=== PATIENT | female | born 1955 | race African-American/Black ===

== ENCOUNTER 2018-02-21 08:17 | Outpatient (CLI) | payer MEDICARE, MEDICAID | END 2018-02-21 08:18 | disposition home or self-care (01) | LOC: BICULT 08:17 | PROVIDERS: ATTEND Family Medicine | DX: R10.11 Right upper quadrant pain (principal); R74.8 Abnormal levels of other serum enzymes | CPT/HCPCS: 76705 ==

== ENCOUNTER 2018-05-09 10:32 | Outpatient (CLI) | payer MEDICARE, MEDICAID | END 2018-05-09 10:33 | disposition home or self-care (01) | LOC: BICMAMMO 10:32 | PROVIDERS: ATTEND Internal Medicine Infectious Disease | DX: Z12.31 Encounter for screening mammogram for malignant neoplasm of breast (principal); Z80.3 Family history of malignant neoplasm of breast | CPT/HCPCS: 77063; 77067 ==

== ENCOUNTER 2018-05-09 15:10 | Inpatient (IN) | payer MEDICARE, OTHER ==
[2018-05-09] MEDS ORDERED: Furosemide 20 MG/2 ML VIAL SLOW IVP SCH (16:00)
[2018-05-09 16:17] VITALS: BMI 32.4
[2018-05-09 16:27] LABS: #Basophils 0.1 thou/uL (0.0-0.2); #Eosinphils 0.2 thou/uL (0.0-0.7); #Lymphocytes 2.9 thou/uL (1.20-3.40); #Monocytes 0.5 thou/uL (0.11-0.59); #Neutrophils 3.1 thou/uL (1.40-6.50); %Eosinophils 2.5 % (0.0-10.0); %Lymphocytes 43.4 % (21.0-51.0); %Monocytes 7.3 % (0.0-10.0); %Neutrophils 45.8 % (42.0-75.0); Hemoglobin 14.1 g/dL (12.0-16.0); Mean Corpuscular HGB CONC 31.9 g/dL (32.0-36.0); Mean Corpuscular Hemoglobin 29.9 pg (27.0-31.0); Mean Corpuscular Volume 93.6 fL (78.0-98.0); Mean Platelet Volume 8.5 fL (7.4-10.4); Platelet Count 186 thou/uL (130-400); RBC Distribution Width 13.5 % (11.5-14.5); Red Blood Cell (RBC) Count 4.73 mill/uL (4.20-5.40); White Blood Cell (WBC) Count 6.8 thou/uL (4.8-10.8)
[2018-05-09 16:48] LABS: ALT (SGPT) 45 U/L (8-55); AST (SGOT) 23 U/L (5-34); Albumin 4.1 g/dL (3.5-5.0); Alkaline Phosphatase 141 U/L (40-150); Anion Gap 12 mmol/L (10-20); BUN (Urea Nitrogen) 11 mg/dL (9.8-20.1); Bilirubin, Total 0.2 mg/dL (0.2-1.2); Calc. Creatinine Clearance 82 mL/min (70-130); Calcium 9.9 mg/dL (7.8-10.44); Carbon Dioxide 23 mmol/L (22-29); Chloride 109 mmol/L (98-107); Estimated GFR-MDRD 60; Globulin 3.2 g/dL (2.4-3.5); Glucose 77 mg/dL (70-105); Magnesium 2.3 mg/dL (1.6-2.6); Phosphorus 3.3 mg/dL (2.3-4.7); Potassium 4.4 mmol/L (3.5-5.1); Protein, Total 7.3 g/dL (6.0-8.3); Sodium 140 mmol/L (136-145)
--- NOTE | 2018-05-09 17:09 | PDOC.FPRHP ---
- History of Present Illness Chief Complaint: SOB History of Present Illness: Ms. Pichardo presents from clinic as a direct admit for SOB She reports for the last 7 months she has really been noticing increasing SOB with activity, weight gain, and swelling in her lower extremities. She attributes to weight gain to her smoking cessation 7 months ago. She reports a history of intermittent shortness of breath and some chest pain. She denies any palpitation, muscle weakness, syncope, or changes in vision. ED Course: direct admit - Allergies/Adverse Reactions Allergies Allergy/AdvReac Type Severity Reaction Status Date / Time No Known Allergies Allergy Unverified 02/14/13 21:11 - Home Medications Medication Instructions Recorded Confirmed Type Aspirin [Ecotrin] 81 mg PO DAILY 05/09/18 05/09/18 History Atorvastatin Calcium [Lipitor] 40 mg PO HS 05/09/18 05/09/18 History Elviteg/Cob/Emtri/Tenof Alafen 1 tab PO DAILY 05/09/18 05/09/18 History [Genvoya Tablet] Linaclotide [Linzess] 290 mcg PO DAILY-AC 05/09/18 05/09/18 History Pregabalin [Lyrica] 150 mg PO BID 05/09/18 05/09/18 History Zolpidem Tartrate 10 mg PO HS PRN 05/09/18 05/09/18 History buPROPion HCl [buPROPion HCl ER] 150 mg PO BID 05/09/18 05/09/18 History - History PMHx: chronic HIV+, HLD, depression PSHx: hysterectomy FHx: NC Social: 40 pack year smoking history, no alcohol, occasional marijuana use - Review of Systems General: reports: weight/appetite/sleep changes, fatigue. denies: fever/chills Eyes: denies: vision changes Respiratory: reports: shortness of breath, exercise intolerance. denies: cough , congestion Cardiovascular: reports: edema. denies: chest pain, palpitation, paroxysmal nocturnal dyspnea, orthopnea Gastrointestinal: reports: constipation. denies: nausea, vomiting, diarrhea Genitourinary: denies: incontinence, dysuria Skin: denies: rashes Musculoskeletal: denies: pain Neurological: denies: numbness, syncope, weakness Psychological: reports: depression - Vital signs BP: 142/95 HR: 71 RR: 19 Tmax: 98.5 Pox: 97% on RA Wt: 96kg - Physical Exam Constitutional: NAD, awake, alert and oriented HEENT: normocephalic and atraumatic, grossly normal vision, grossly normal hearing Neck: FROM, trachea midline Chest: no-tender to palpation, no lesions Heart: RRR, normal S1/S2, no murmurs/rubs/gallops, pulses present, other (1+ edema to knees) Lungs: CTAB, no respiratory distress, good air movement, no wheezing, other ( mild crackles in lower lung epstein) Abdomen: soft, non-tender Musculoskeletal: normal structure, normal tone, ROM grossly normal Neurological: no focal deficit Skin: no rash/lesions Heme/Lymphatic: no unusual bruising or bleeding Psychiatric: normal mood and affect FMR H&P: Results - Labs Result Diagrams: 05/09/18 16:18 05/09/18 16:18 Lab results: WBC 6.8 thou/uL (4.8-10.8) 05/09/18 16:18 Hgb 14.1 g/dL (12.0-16.0) 05/09/18 16:18 Hct 44.3 % (36.0-47.0) 05/09/18 16:18 MCV 93.6 fL (78.0-98.0) 05/09/18 16:18 Plt Count 186 thou/uL (130-400) 05/09/18 16:18 Neutrophils % 45.8 % (42.0-75.0) 05/09/18 16:18 Sodium 140 mmol/L (136-145) 05/09/18 16:18 Potassium 4.4 mmol/L (3.5-5.1) 05/09/18 16:18 Chloride 109 mmol/L (98-107) H 05/09/18 16:18 Carbon Dioxide 23 mmol/L (22-29) 05/09/18 16:18 BUN 11 mg/dL (9.8-20.1) 05/09/18 16:18 Creatinine 1.12 mg/dL (0.6-1.1) H 05/09/18 16:18 Glucose 77 mg/dL (70-105) 05/09/18 16:18 Calcium 9.9 mg/dL (7.8-10.44) 05/09/18 16:18 Total Bilirubin 0.2 mg/dL (0.2-1.2) 05/09/18 16:18 AST 23 U/L (5-34) 05/09/18 16:18 ALT 45 U/L (8-55) 05/09/18 16:18 Alkaline Phosphatase 141 U/L (40-150) 05/09/18 16:18 B-Natriuretic Peptide 10.4 pg/mL (0-100) 05/09/18 16:18 Serum Total Protein 7.3 g/dL (6.0-8.3) 05/09/18 16:18 Albumin 4.1 g/dL (3.5-5.0) 05/09/18 16:18 FMR H&P: A/P - Problem List (1) Shortness of breath Current Visit: Yes Status: Acute Code(s): R06.02 - SHORTNESS OF BREATH (2) HIV (human immunodeficiency virus infection) Current Visit: Yes Status: Acute (3) HLD (hyperlipidemia) Current Visit: Yes Status: Acute Code(s): E78.5 - HYPERLIPIDEMIA, UNSPECIFIED (4) Constipation Current Visit: Yes Status: Acute Code(s): K59.00 - CONSTIPATION, UNSPECIFIED (5) Depression Current Visit: Yes Status: Acute Code(s): F32.9 - MAJOR DEPRESSIVE DISORDER , SINGLE EPISODE, UNSPECIFIED (6) Tobacco abuse, in remission Current Visit: Yes Status: Acute Code(s): F17.201 - NICOTINE DEPENDENCE, UNSPECIFIED, IN REMISSION - Plan Shortness of breath and lower extremity edema - concerning for new onset CHF, admit to tele, monitor strict IandOs and daily weights - tropsx3, TTE, CXR pending - BNP 10.4 - lasix 20mg IV BID, ASA 81 HIV - followed by Dr. Wu, taking medication as prescribed - continue home meds - consider obtaining CD4 HLD - atorvastatin 40, continue - contributing to overall risk for cardiovascular disease Constipation - continue home medications, monitor Depression - continue home medications Tobacco abuse in remission - continue to encourage smoking cessation - contributing to overall risk for cardiovascular disease ppx: lovenox code: full Disposition/LOS: evaluate further testing ordered for CHF, plan as needed, diurese and monitor FMR H&P: Upper Level - Pertinent history 62 y/o F w/ PMHx of HIV, HLD, and hx of tobacco abuse presents as a direct admit form clinic after being evaluated for increased SOB w/ exertion, orthopnea , and LE swelling concerning for new onset CHF. Also endorsing intermittent sharp sub-sternal chest pain. Denies any active chest pain at this time. No hx of cardiac issues. - Pertinent findings Vitals reviewed as outlined above in events intern note Labs and imaging pending at time of this note GEN: NAD, resting in bed comfortably HEENT: Normocephalic, atraumatic CARDS: RRR, no mumur PULM: CTA-b/l, no wheezes, rales, or murmurs EXT: 1+ LE edema b/l to mid collins - Plan Date/Time: 05/09/18 1705 I[place]. Doyle Garcia MD have evaluated this patient and agree with findings/plan as outlined by events intern resident. Pertinent changes/additions are listed here. 62 y/o F w/: 1) Likely New Onset CHF - Labs and imaging pending at time of this note including BNP, ECHO, CXR, and CE s - Fluid restrict and will monitor strict I/Os with daily weights - Cont. w/ statin and start aspirin - IV Lasix 20 mg BID, will adjust pending observed fluid response - Cardiology consult for further evaluation and recs 2) Other Chronic Problems - Reviewed, discussed with, and agree with events intern note as outlined above Code status: Full Code Ppx: Lovenox Assessment and Plan discussed w/ Dr. Chance who is in agreement. Attending Addendum - Attending Addendum Date/Time: 05/09/18 464 I personally evaluated the patient and discussed the management with Dr. Wray. I agree with and repeated the History, Examination, Assessment and Plan documented above with any addition or exceptions noted below. Scant bilateral basilar crackles, no wheezes, no inc wob. RRR s m. CP/SOB -likely new onset CHF -TTE, stress to follow -diuresis HIV -continue genvoya OUMAR vs CKD -vs possible SE of cobicistat -monitor HTN/HLP -continue home meds DVT/GI ppx
--- NOTE | 2018-05-09 17:17 | RAD ---
CHEST ONE VIEW: 05/09/18 HISTORY: New onset CHF. COMPARISON: Radiograph 02/14/13. FINDINGS: The lungs are mildly hyperinflated. Mild pulmonary venous congestion. No pneumothorax. No effusion. No acute osseous abnormality. IMPRESSION: Mild lung hyperinflation and low grade pulmonary venous congestion. POS: [facility]
[2018-05-09 19:06] LABS: CKMB 2.6 ng/mL (0-6.6); Troponin I Less than 0.010 ng/mL (< 0.028)
[2018-05-09 21:33] LABS: CKMB 2.5 ng/mL (0-6.6); Troponin I Less than 0.010 ng/mL (< 0.028)
[2018-05-10] MEDS: Zolpidem Tartrate 5 MG TAB PO PRN ×2 (00:24→23:14)
[2018-05-10 00:54] LABS: Anion Gap 12 mmol/L (10-20); BUN (Urea Nitrogen) 15 mg/dL (9.8-20.1); CKMB 2.1 ng/mL (0-6.6); Calc. Creatinine Clearance 78 mL/min (70-130); Calcium 10.3 mg/dL (7.8-10.44); Carbon Dioxide 26 mmol/L (22-29); Chloride 108 mmol/L (98-107); Estimated GFR-MDRD 57; Glucose 93 mg/dL (70-105); Sodium 142 mmol/L (136-145); Troponin I Less than 0.010 ng/mL (< 0.028)
--- NOTE | 2018-05-10 06:03 | PDOC.FM ---
- Subjective Subjective: Jesus Pichardo seen at bedside this morning. She is doing well, has no complaints. She denies any active chest pain, dyspnea, or palpitations. She had negative trops X3 overnight. She is scheduled for Echo this morning, as well as stress test today. - Objective MAR Reviewed: Yes Vital Signs & Weight: Vital Signs (12 hours) Temp Pulse Resp BP BP Pulse Ox 05/10/18 03:10 98.1 F 79 17 98/67 95 05/10/18 00:00 98.3 F 76 16 123/78 94 L 05/09/18 19:22 95 Weight Weight 96.887 kg I&O: 05/08/18 05/09/18 05/10/18 06:59 06:59 06:59 Output Total 900 Balance -900 Result Diagrams: 05/09/18 16:18 05/10/18 00:25 <Yrn Figueroa - Last Filed: 05/10/18 07:06> - Objective Vital Signs & Weight: Vital Signs (12 hours) Temp Pulse Resp BP BP Pulse Ox 05/10/18 08:00 97.9 F 73 16 94 L 05/10/18 03:10 98.1 F 79 17 98/67 95 05/10/18 00:00 98.3 F 76 16 123/78 94 L Weight Weight 95.98 kg I&O: 05/09/18 05/10/18 05/11/18 06:59 06:59 06:59 Intake Total 360 Output Total 2050 Balance -1690 Result Diagrams: 05/09/18 16:18 05/10/18 00:25 <Abhilash Chance - Last Filed: 05/10/18 11:08> Phys Exam - Physical Examination Constitutional: NAD HEENT: moist MMs, sclera anicteric Neck: supple, full ROM Respiratory: no wheezing, no rales, no rhonchi, clear to auscultation bilateral Cardiovascular: RRR, no significant murmur Gastrointestinal: soft, non-tender, no distention Musculoskeletal: no edema, pulses present Neurological: non-focal, moves all 4 limbs Psychiatric: normal affect, A&O x 3 <Yrn Figueroa - Last Filed: 05/10/18 07:06> Dx/Plan (1) Shortness of breath Code(s): R06.02 - SHORTNESS OF BREATH Status: Acute (2) HLD (hyperlipidemia) Code(s): E78.5 - HYPERLIPIDEMIA, UNSPECIFIED Status: Chronic (3) Depression Code(s): F32.9 - MAJOR DEPRESSIVE DISORDER, SINGLE EPISODE, UNSPECIFIED Status : Chronic (4) Tobacco abuse, in remission Code(s): F17.201 - NICOTINE DEPENDENCE, UNSPECIFIED, IN REMISSION Status: Chronic (5) Constipation Code(s): K59.00 - CONSTIPATION, UNSPECIFIED Status: Acute (6) HIV (human immunodeficiency virus infection) Status: Chronic - Plan Plan: (1) Shortness of breath and lower extremity edema - concerning for new onset mild CHF - monitor strict IandOs and daily weights - trops were negative x3, TTE pending, CXR showed mild lung hyperinflation, low grade pulm vasc congestion - BNP 10.4 - lasix 20mg give - Continue aspirin and statin - Stress today (2) HIV - followed by Dr. Wu, taking medication as prescribed - continue home meds - consider obtaining CD4 (3) HLD - atorvastatin 40, continue - contributing to overall risk for cardiovascular disease (4) Constipation - continue home medications, monitor (5) Depression - continue home medications (6) Tobacco abuse in remission - continue to encourage smoking cessation - contributing to overall risk for cardiovascular disease ppx: lovenox code: full <Yrn Figueroa - Last Filed: 05/10/18 07:06> (1) Shortness of breath Code(s): R06.02 - SHORTNESS OF BREATH Status: Acute (2) HIV (human immunodeficiency virus infection) Status: Chronic (3) HLD (hyperlipidemia) Code(s): E78.5 - HYPERLIPIDEMIA, UNSPECIFIED Status: Chronic (4) Constipation Code(s): K59.00 - CONSTIPATION, UNSPECIFIED Status: Acute (5) Depression Code(s): F32.9 - MAJOR DEPRESSIVE DISORDER, SINGLE EPISODE, UNSPECIFIED Status : Chronic (6) Tobacco abuse, in remission Code(s): F17.201 - NICOTINE DEPENDENCE, UNSPECIFIED, IN REMISSION Status: Chronic <Abhilash Chance - Last Filed: 05/10/18 11:08> Attending Addendum - Attending Addendum Date/Time: 05/10/18 1108 I personally evaluated the patient and discussed the management with Dr. Figueroa. I agree with and repeated the History, Examination, Assessment and Plan documented above with any addition or exceptions noted below. Await stress and TTE and disposition pending. <Abhilash Chance - Last Filed: 05/10/18 11:08>
[2018-05-10] MEDS: Pregabalin 75 MG CAP PO SCH ×2 (09:11→23:11)
[2018-05-10] MEDS: Enoxaparin Sodium 40 MG/0.4 ML SYRINGE SC SCH (09:13)
[2018-05-10] MEDS: Bupropion 150 MG SR TAB PO SCH ×2 (09:13→21:31)
[2018-05-10] MEDS: (Elviteg/Cob/Emtri/Tenof Alafen [Genvoya Tablet] 1 TAB) PO SCH (09:15)
[2018-05-10] MEDS ORDERED: ADENOSINE 60 MG/20 ML VIAL ONE (10:25)
--- NOTE | 2018-05-10 14:29 | NM ---
SINGLE DAY NUCLEAR MEDICINE CARDIAC STRESS TEST WITH EJECTION FRACTION: HISTORY: New onset heart failure. COMPARISON: None. TECHNIQUE/FINDINGS: A single day stress test was performed after the intravenous administration of 29 mCi technetium-99m sestamibi. There is adequate left ventricular uptake of radiotracer. Normal wall motion. No evidence of scar or ischemia. Ejection fraction is 65%. IMPRESSION: Normal nuclear medicine cardiac stress test and ejection fraction. POS: [facility]
[2018-05-10] MEDS ORDERED: Atorvastatin Calcium 40 MG TAB PO SCH (21:00)
--- NOTE | 2018-05-10 21:34 | CON ---
DATE OF CONSULTATION: 05/10/2018 REASON FOR CONSULTATION: HIV infection with edema and dyspnea. HISTORY OF PRESENT ILLNESS: A 62-year-old, who was a known patient to me for many years, who has a stable HIV infection with adequate adherence to antiretroviral therapy and suppressed viral load, the latest CD4 cell count is above 500. The patient developed edema and some respiratory symptoms and was admitted. Cardiology evaluation was not unremarkable including a stress nuclear test and an echocardiogram. The patient is currently feeling well. Denies any headaches, visual symptoms, sore throat, odynophagia, or dysphagia. No chest pain, no abdominal pain, no diarrhea, no genitourinary symptoms. Mild edema in lower extremities. PAST MEDICAL HISTORY: Includes longstanding HIV infection with adequate adherence to antiretroviral therapy, suppression of viral load, previous episodes of SBO with normal colonoscopy and normal small bowel follow through in 2006, hysterectomy, menorrhagia, tubal ligation. ALLERGIES: None. MEDICATIONS: Atripla. Actually, she is now on Genvoya for her HIV infection. FAMILY HISTORY: Breast cancer, diabetes. SOCIAL HISTORY: The patient has a former history of smoking. PHYSICAL EXAMINATION: VITAL SIGNS: Normal, O2 sats 94% on room air. GENERAL: She is in no distress. SKIN: No skin lesions. LYMPHATIC: No lymphadenopathy. HEENT: Noncontributory. NECK: Supple. No jugular vein distention. LUNGS: Clear to auscultation and percussion. No wheezing. HEART: S1, S2, regular rate. No S3, S4. ABDOMEN: Soft, not distended or tender. No ascites. No bladder distention. EXTREMITIES: No joint inflammatory activity. Trace edema in lower extremities. Pulses 1+ in dorsalis pedis. Moves all extremities equally. NEUROLOGIC: Cognitive function appears to be stable. DIAGNOSTIC DATA: Labs are fairly unremarkable except for mild elevation of creatinine. Troponin normal. The workup includes normal stress test, nuclear medicine, and echocardiogram, EF of 55-60%. Chest x-ray with mild lung hyperinflation. ASSESSMENT: 1. Longstanding human immunodeficiency virus infection with excellent adherence to ensure hold antiretroviral therapy with adequate suppression of viral load and normal CD4 cell count. 2. Some edema and some respiratory symptoms. 3. Negative cardiac evaluation. DISCUSSION: It is possible that her dyspnea is related to lung findings. She does have a history of smoking. They have some early emphysema, chronic obstructive lung disease. She should continue taking her antiretroviral therapy as previously. She has had a negative stress test and will follow up with me in the clinic as scheduled. ADRI
[2018-05-11 05:42] LABS: Anion Gap 10 mmol/L (10-20); BUN (Urea Nitrogen) 16 mg/dL (9.8-20.1); Calc. Creatinine Clearance 69 mL/min (70-130); Calcium 10.2 mg/dL (7.8-10.44); Carbon Dioxide 26 mmol/L (22-29); Chloride 107 mmol/L (98-107); Estimated GFR-MDRD 50; Glucose 102 mg/dL (70-105); Potassium 4.2 mmol/L (3.5-5.1); Sodium 139 mmol/L (136-145)
--- NOTE | 2018-05-11 05:44 | PDOC.FM ---
- Subjective Subjective: Jesus Beaulieu seen at bedside this morning. She has no complaints and there were no acute events overnight. She denies any active chest pain and did not have an recurrence of chest pain during her stress test yesterday. Both the stress test and the Echo were performed yesterday and they were normal. EF 55-60 %. She is ready to go home today. - Objective MAR Reviewed: Yes Vital Signs & Weight: Vital Signs (12 hours) Temp Pulse Resp BP Pulse Ox 05/10/18 20:00 94 L 05/10/18 19:40 97.8 F 84 16 126/58 L 94 L Weight Weight 95.98 kg I&O: 05/09/18 05/10/18 05/11/18 06:59 06:59 06:59 Intake Total 360 1210 Output Total 2049 800 Balance -1690 410 Result Diagrams: 05/09/18 16:18 05/11/18 04:54 <Yrn Figueroa - Last Filed: 05/11/18 06:56> - Objective Vital Signs & Weight: Vital Signs (12 hours) Temp Pulse Resp BP BP Pulse Ox 05/11/18 08:00 94 L 05/11/18 07:30 98.6 F 101 H 18 101/68 93 L 05/11/18 03:25 97.5 F L 89 15 100/58 L 92 L Weight Weight 95.663 kg I&O: 05/10/18 05/11/18 05/12/18 06:59 06:59 06:59 Intake Total 360 1960 Output Total 2049 1300 Balance -1690 660 Result Diagrams: 05/09/18 16:18 05/11/18 04:54 <Abhilash Chance - Last Filed: 05/11/18 12:19> Phys Exam - Physical Examination Constitutional: NAD HEENT: moist MMs, sclera anicteric Neck: no JVD, supple, full ROM Respiratory: no wheezing, no rales, no rhonchi, clear to auscultation bilateral Cardiovascular: RRR, no significant murmur Gastrointestinal: soft, non-tender, no distention Musculoskeletal: no edema, pulses present Neurological: moves all 4 limbs Psychiatric: normal affect, A&O x 3 <Yrn Figueroa - Last Filed: 05/11/18 06:56> Dx/Plan (1) Shortness of breath Code(s): R06.02 - SHORTNESS OF BREATH Status: Acute (2) HLD (hyperlipidemia) Code(s): E78.5 - HYPERLIPIDEMIA, UNSPECIFIED Status: Chronic (3) Depression Code(s): F32.9 - MAJOR DEPRESSIVE DISORDER, SINGLE EPISODE, UNSPECIFIED Status : Chronic (4) Tobacco abuse, in remission Code(s): F17.201 - NICOTINE DEPENDENCE, UNSPECIFIED, IN REMISSION Status: Chronic (5) Constipation Code(s): K59.00 - CONSTIPATION, UNSPECIFIED Status: Acute (6) HIV (human immunodeficiency virus infection) Status: Chronic - Plan Plan: (1) Shortness of breath and lower extremity edema - concerning for new onset mild CHF - monitor strict I&Os and daily weights - trops were negative x3 - TTE pending showed normal EF of 55-60% - CXR showed mild lung hyperinflation, low grade pulm vasc congestion - BNP 10.4 - Continue aspirin and statin - Stress test yesterday was normal - Possible that symptoms are related to COPD, pt has smoking history - Will consider starting Spiriva and recommending outpatient f/u with PCP for further workup (2) HIV - followed by Dr. Wu, taking medication as prescribed - continue home meds (3) HLD - atorvastatin 40, continue - contributing to overall risk for cardiovascular disease (4) Constipation - continue home medications, monitor (5) Depression - continue home medications (6) Tobacco abuse in remission - continue to encourage smoking cessation - contributing to overall risk for cardiovascular disease <Yrn Figueroa - Last Filed: 05/11/18 06:56> (1) Shortness of breath Code(s): R06.02 - SHORTNESS OF BREATH Status: Acute (2) HIV (human immunodeficiency virus infection) Status: Chronic (3) HLD (hyperlipidemia) Code(s): E78.5 - HYPERLIPIDEMIA, UNSPECIFIED Status: Chronic (4) Constipation Code(s): K59.00 - CONSTIPATION, UNSPECIFIED Status: Acute (5) Depression Code(s): F32.9 - MAJOR DEPRESSIVE DISORDER, SINGLE EPISODE, UNSPECIFIED Status : Chronic (6) Tobacco abuse, in remission Code(s): F17.201 - NICOTINE DEPENDENCE, UNSPECIFIED, IN REMISSION Status: Chronic <Abhilsah Chance - Last Filed: 05/11/18 12:19> Attending Addendum - Attending Addendum Date/Time: 05/11/18 1219 I personally evaluated the patient and discussed the management with Dr. Figueroa. I agree with and repeated the History, Examination, Assessment and Plan documented above with any addition or exceptions noted below. <Abhilash Chance - Last Filed: 05/11/18 12:19>
[2018-05-11] MEDS: Pregabalin 75 MG CAP PO SCH (09:11)
[2018-05-11] MEDS: Bupropion 150 MG SR TAB PO SCH (09:11)
[2018-05-11] MEDS: (Linaclotide [Linzess] 290 MCG) PO SCH ×2 (09:12→09:18)
[2018-05-11] MEDS: (Elviteg/Cob/Emtri/Tenof Alafen [Genvoya Tablet] 1 TAB) PO SCH (09:13)
[2018-05-11] MEDS: Enoxaparin Sodium 40 MG/0.4 ML SYRINGE SC SCH (09:13)
[2018-05-11 12:29] VITALS: BP 112/68; TEMP 97.7
--- NOTE | 2018-05-11 14:27 | DIS-2 ---
DATE OF ADMISSION: 05/09/2018 DATE OF DISCHARGE: 05/11/2018 RESIDENT: Yrn Figueroa M.D. ADMITTING ATTENDING: Abhilash Chance MD DISCHARGE ATTENDING: Abhilash Chance MD CONSULTATIONS: Dr. Wu, Infectious Disease. PROCEDURES: 1. Chest x-ray on 05/09/2018, impression, mild lung hyperinflation of low- grade pulmonary venous congestion. 2. Stress test nuclear medicine, impression, normal nuclear medicine cardiac stress test and ejection fraction of 65%. 3. Echocardiogram summary, ejection fraction visually estimated at 55%-60%, mild tricuspid regurgitation. PRIMARY DIAGNOSIS: Mild chronic obstructive pulmonary disease exacerbation. SECONDARY DIAGNOSES: 1. Human immunodeficiency virus. 2. Hyperlipidemia. 3. Constipation. 4. Depression. 5. Tobacco abuse, in remission. DISCHARGE MEDICATIONS: Resume home medications including, 1. Lyrica 150 mg p.o. b.i.d. 2. Linaclotide 290 mcg p.o. daily a.c. 3. Bupropion 150 mg p.o. b.i.d. 4. Zolpidem tartrate 10 mg p.o. at bedtime p.r.n. 5. Genvoya 1 tab p.o. daily. 6. Atorvastatin calcium 40 mg p.o. at bedtime. NEW HOME MEDICATIONS: 1. Aspirin 81 mg p.o. daily. 2. Tiotropium 18 mcg INH daily. HISTORY OF PRESENT ILLNESS/HOSPITAL COURSE: Jesus Pichardo is a 62-year-old female with a past medical history of chronic HIV that is well controlled on antiretrovirals, hyperlipidemia, and depression, who was sent over from [facility] as a direct admission due to a 7-month history of increasing shortness of breath with activity, weight gain, and swelling in her lower extremities. She attributes the weight gain to her smoking cessation 7 months ago. She reported a history of intermittent shortness of breath and some chest pain. She denies any palpitations, muscle weakness, syncope, changes in vision. On admission, vital signs were, blood pressure 142/95, heart rate 71, respiratory rate 19, T-max 98.5, pulse oximetry 97% on room air. The patient was admitted to rule out congestive heart failure. I and O's were monitored, daily weights. Her tropes were negative. Transthoracic echocardiogram was read as above and chest x-ray as above. BNP was drawn and was 10.4. The patient was given 1 dose of Lasix and diuresed approximately 1 liter of fluid, but Lasix was discontinued after imaging and labs confirmed absence of congestive heart failure. Patient's symptoms of shortness of breath were resolved while in the hospital. She denied any shortness of breath with activity or chest pain and her hospitalization was otherwise uneventful. She had a normal stress test as well on 05/10/2018. It was thought that her symptoms could be more likely due to COPD, although she has never carried a diagnosis of COPD. She does have a large smoking history. The patient was discharged with instructions to follow up with her PCP, Dr. Hinojosa, and she was initiated on Spiriva upon discharge from the hospital. Other notable lab results were during her admission she had a creatinine that was initially 1.12 and abdullahi to 1.31. It was thought that this could be secondary to the tenofovir and her Shelly medication for HIV. She was instructed to follow up with her PCP to have labs rechecked. DISPOSITION: Stable. DISCHARGE INSTRUCTIONS: 1. Location: Home. 2. Diet: Heart healthy. 3. Activity: As tolerated. 4. Follow up with primary care provider in 1-2 weeks and follow up with Dr. Wu, Infectious Disease, in 1-2 weeks. ADRI
== END 2018-05-11 12:59 | disposition home or self-care (01) | DRG 191 ==
LOC: 2NO 15:10
PROVIDERS: ADMIT Emergency Medicine; ATTEND Emergency Medicine
DX: J43.9 Emphysema, unspecified (principal); B20 Human immunodeficiency virus [HIV] disease; I07.1 Rheumatic tricuspid insufficiency; E78.5 Hyperlipidemia, unspecified; K59.00 Constipation, unspecified; F32.9 Major depressive disorder, single episode, unspecified; F17.210 Nicotine dependence, cigarettes, uncomplicated; F17.201 Nicotine dependence, unspecified, in remission; F12.90 Cannabis use, unspecified, uncomplicated
CPT/HCPCS: 36415; 71045; 78452; 80048; 80053; 82553; 83735; 83880; 84100; 84484; 85025; 90471; 90686; 93017; 93306; A9500; G0008; J0153; J1650; J1940

== ENCOUNTER 2018-11-14 11:27 | Outpatient (CLI) | payer MEDICARE, MEDICAID ==
--- NOTE | 2018-11-14 12:54 | ULT ---
Bilateral lower extremity venous Doppler ultrasound: 11/14/2018 COMPARISON: None HISTORY: Edema, swelling, assess for DVT TECHNIQUE: Multiplanar grayscale sonographic imaging of the venous structures of bilateral lower extr emities obtained with color flow and spectral analysis FINDINGS: Bilateral common femoral veins, greater saphenous veins, profunda femoral veins, femoral ve ins, popliteal veins, and posterior tibial veins are patent. There is normal blood flow, augmentation, and compression within the deep venous system bilaterally. No evidence for DVT on eithe r side IMPRESSION: No evidence for deep venous thrombosis of either lower extremity.
--- NOTE | 2018-11-14 14:05 | ULT ---
RENAL ULTRASOUND: HISTORY: Disorder of the kidney and ureters. TECHNIQUE: Multiplanar, garcia scale, and color Doppler images were obtained in a renal ultrasound. FINDINGS: The kidneys are normal in echogenicity without hydronephrosis or calculi and measure 10.3 and 10.9 cm in length on the right and left, respectively. Limited visualization of the urinary bladder is unre markable. No significant postvoid residual is seen. IMPRESSION: Unremarkable renal ultrasound. POS: [facility]
== END 2018-11-14 11:28 | disposition home or self-care (01) ==
LOC: ULT 11:27
PROVIDERS: ATTEND Internal Medicine Infectious Disease
DX: N28.9 Disorder of kidney and ureter, unspecified (principal); R60.0 Localized edema
CPT/HCPCS: 36415; 76770; 80053; 81001; 84439; 84443; 85025; 93970

== ENCOUNTER 2019-03-18 08:56 | Outpatient (CLI) | payer MEDICARE, MEDICAID ==
--- NOTE | 2019-03-18 09:21 | ULT ---
Exam: Bilateral renal ultrasound HISTORY: Chronic kidney disease COMPARISON: Prior renal ultrasound dated November 14, 2018 FINDINGS: Right kidney: Normal cortical echotexture. No hydronephrosis. The right renal cortical thickness was 1.9 cm. Right kidney measurements: 9.6 x 5.0 x 4.3 cm Left kidney: Normal cortical echotexture. No hydronephrosis. The left renal cortical thickness was 1. 4 cm. Left kidney measurements: 10.1 x 5.0 x 4.5 cm Urinary bladder: The prevoid bladder volume was 147 cc. No definite intraluminal mass is seen. IMPRESSION: No focal renal lesion or hydronephrosis.
== END 2019-03-18 08:57 | disposition home or self-care (01) ==
LOC: BICULT 08:56
PROVIDERS: ATTEND Internal Medicine Nephrology
DX: N18.3 Chronic kidney disease, stage 3 (moderate) (principal)
CPT/HCPCS: 76770

== ENCOUNTER 2019-05-11 10:19 | Outpatient (CLI) | payer MEDICARE, MEDICAID ==
--- NOTE | 2019-05-11 11:17 | MMO ---
Bilateral MAMMO Bilat Screen [facility]. CLINICAL HISTORY: Patient is 63 years old and is seen for screening. The patient has the following family history of breast cancer: mother. The patient has no personal history of cancer. VIEWS: The views performed were: bilateral craniocaudal with tomosynthesis; bilateral mediolateral oblique; and bilateral mediolateral oblique with tomosynthesis. FILMS COMPARED: The present examination has been compared to prior imaging studies performed at [facility] on 03/08/2015, 03/12/2016, 04/24/2017 and 05/09/2018. This study has been interpreted with the assistance of computer-aided detection. MAMMOGRAM FINDINGS: There are scattered fibroglandular densities. There are no suspicious masses, suspicious calcifications, or new areas of architectural distortion. IMPRESSION: THERE IS NO MAMMOGRAPHIC EVIDENCE OF MALIGNANCY. A ROUTINE FOLLOW-UP MAMMOGRAM IN 1 YEAR IS RECOMMENDED. THE RESULTS OF THIS EXAM WERE SENT TO THE PATIENT. ACR BI-RADS Category 1 - Negative MAMMOGRAPHY NOTE: 1. A negative mammogram report should not delay a biopsy if a dominant of clinically suspicious mass is present. 2. Approximately 10% to 15% of breast cancers are not detected by mammography. 3. Adenosis and dense breasts may obscure an underlying neoplasm. Reported by: TANNER HARRIS MD Electonically Signed: [id number]
== END 2019-05-11 10:20 | disposition home or self-care (01) ==
LOC: BICMAMMO 10:19
PROVIDERS: ATTEND Family Medicine
DX: Z12.31 Encounter for screening mammogram for malignant neoplasm of breast (principal); Z80.3 Family history of malignant neoplasm of breast
CPT/HCPCS: 77063; 77067

== ENCOUNTER 2019-09-08 11:04 | Emergency (ER) | payer MEDICARE, MEDICAID ==
[2019-09-08] MEDS ORDERED: diphenhydrAMINE 50 MG/ML VIAL ONE (11:58)
[2019-09-08] MEDS ORDERED: Metoclopramide HCl 10 MG/2 ML VIAL ONE (11:58)
[2019-09-08] MEDS ORDERED: Ketorolac Tromethamine 30 MG/ML VIAL ONE (11:58)
== END 2019-09-08 14:02 | disposition home or self-care (01) ==
LOC: ERS 11:04
DX: G43.909 Migraine, unspecified, not intractable, without status migrainosus (principal); F41.9 Anxiety disorder, unspecified; F32.9 Major depressive disorder, single episode, unspecified; B20 Human immunodeficiency virus [HIV] disease
CPT/HCPCS: 96365; 96366; 96375; J1200; J1885; J2765